=== PATIENT | male | born 1945 | race Asian ===

== ENCOUNTER → 2024-06-15 14:47 | Outpatient (REF) | payer OTHER, SELFPAY | LOC: RAD 14:47 | PROVIDERS: ATTENDING PHYSICIAN Physician Assistant Medical | DX: K40.90 Unilateral inguinal hernia, without obstruction or gangrene, not specified as recurrent (principal); R82.90 Unspecified abnormal findings in urine | CPT/HCPCS: 76857 ==

== ENCOUNTER 2024-07-27 06:09 | Day surgery (SDC) | payer OTHER, SELFPAY ==
[2024-07-15 10:50] LABS: Hematocrit 41.6 % (39.0-52.0); Hemoglobin 13.9 g/dL (13.0-18.0); Mean Corp Hgb Conc. 33.4 g/dL (33.0-37.0); Mean Corpuscular Volume 92.9 fL (80.0-94.0); Mean Platelet Volume 9.8 fL (7.4-10.4); Platelet Count 224 10^3/uL (130-400); Red Blood Cell Count 4.48 10^6/uL (4.70-6.10); Red Cell Dist. Width 12.5 % (11.5-14.5)
[2024-07-15 11:24] LABS: Blood Urea Nitrogen 14 mg/dl (9-20); Calcium 9.3 mg/dl (8.4-10.2); Carbon Dioxide 29 mmol/L (22-30); Chloride 95 mmol/L (98-107); Glucose 104 mg/dl (70-99); Potassium 5.2 mmol/L (3.5-5.1); Sodium 133 mmol/L (135-145); eGFR > 60.00
[2024-07-15 13:02] VITALS: BMI 22.6
[2024-07-27] VITALS (9 sets, daily range): BP systolic 119–161; BP diastolic 63–97; BMI 22.6
[2024-07-27] MEDS: TYLENOL 1000 MG PO (10:19)
[2024-07-27] MEDS: NORMOSOL-R 1000 IV (10:19)
[2024-07-27] MEDS: ROXICODONE 5 MG PO (16:03)
== END 2024-07-27 17:17 | disposition home or self-care (01) ==
LOC: SDS 06:09
PROVIDERS: ATTENDING PHYSICIAN Surgery; FAMILY PHYSICIAN Student in an Organized Health Care Education/Training Program
DX: K40.90 Unilateral inguinal hernia, without obstruction or gangrene, not specified as recurrent (principal); D17.6 Benign lipomatous neoplasm of spermatic cord
CPT/HCPCS: 49650; 36415; 80048; 85027; 93005; C1781